=== PATIENT | male | born 1995 | race Caucasian/White ===

== ENCOUNTER 2018-11-05 06:47 | Emergency (ER) | payer BC ==
[~2018-11-05] VITALS: Ht 177.8 cm; Wt 99.8 kg
[2018-11-05 07:16] VITALS: Ht 177.8 cm; Wt 99.8 kg
[2018-11-05 08:34] LABS: AMPHETAMINE QUAL UR NONE DETECTED (See below)
[2018-11-05 12:09] VITALS: BP 118/65
== END 2018-11-05 12:09 | disposition home or self-care (01) ==
LOC: ED 06:47
PROVIDERS: Emergency Medicine
DX: F10.129 Alcohol abuse with intoxication, unspecified (principal); F19.10 Other psychoactive substance abuse, uncomplicated; Y90.8 Blood alcohol level of 240 mg/100 ml or more
CPT/HCPCS: G0480; J1200; J1630; J2060; J3490